=== PATIENT | male | born 1945 | race Caucasian/White ===

== ENCOUNTER 2024-05-17 10:41 | Outpatient (CLI) | payer MEDICARE, SELFPAY | END 2024-05-17 23:59 | disposition home or self-care (01) | LOC: RT 10:44 | PROVIDERS: PCP Family Medicine; Visit Provider Nurse Practitioner | DX: R42 Dizziness and giddiness (principal); R00.1 Bradycardia, unspecified; R06.09 Other forms of dyspnea | CPT/HCPCS: 93270 ==

== ENCOUNTER 2024-06-01 09:43 | Outpatient (CLI) | payer MEDICARE, SELFPAY ==
--- NOTE | 2024-06-01 | CA_ITS ---
APPROVED REPORT EXAM: Comprehensive 2D, Doppler, and color-flow Echocardiogram Knobber: Melani Franco RT(R) Ht: 5 ft 11 in Wt: 219lbs BSA: 2.19 BP: 150/70 mmHg Indications: dizziness, dyspnea, hyperlipidemia, ex smoker, COTO, hx COVID, bradycardia, acute facial weakness 2D Dimensions LVEF (Fuentes's) 59.20 % LV Volume 102.40 mL LA Volume 46.30 mL LA Volume Index 20.70 mL/m2 (M/F) 16-34 EF AP4 62.70 % EF AP2 52.5 % EF BP 59.2 % GL Strain -16.2 % M-Mode Dimensions RVDd 3.90 cm (0.9-2.6) LA Diam 5.09 cm (1.9-4.0) LVDd 4.50 cm (3.5-5.7) LVDs 3.34 cm (3.5-5.7) IVSd 0.92 cm (0.6-1.1) PWd 1.21 cm (0.6-1.1) EF (Teich) 50.90% FS 25.80% EDV (Teich) 92.40 mL ESV (Teich) 45.40 mL LV Diastology E Decel Time 217 (160-240 msec) E/A Ratio 1.32 Mitral Valve MV E Max Jareth. 99.0 (40-130 cm/s) MV A Velocity 75.0 (40-130 cm/s) E/A Ratio 1.32 MV PHT 63.0 ms Left Ventricle The left ventricle is normal size. The left ventricular systolic function is normal. The left ventricular ejection fraction is within the normal range. There is increased overall thickness. There is normal LV segmental wall motion. The left ventricular diastolic function is normal. LVEF is 55%. Right Ventricle The right ventricle is normal size. The right ventricular systolic function is normal. Atria Left atrium is mildly dilated. Right atrium is mildly dilated. There is no Doppler evidence of interatrial shunt. Aortic Valve The aortic valve is mildly thickened. Trace aortic regurgitation. There is no aortic valvular stenosis. Mitral Valve The mitral valve leaflets are mildly thickened. Mild mitral regurgitation. No evidence of mitral valve stenosis. Tricuspid Valve The tricuspid valve leaflets are thin and pliable. Trace tricuspid regurgitation. There is insufficient TR jet to estimate RVSP. Pulmonic Valve The pulmonary valve is normal in structure. Trace pulmonic regurgitation. Great Vessels The aortic root is normal in size. The ascending aorta is not well-visualized. IVC is normal in size and collapses >50% with inspiration. Pericardium There is no pericardial effusion. Other Information Study Quality: Fair Conclusion Normal biventricular systolic function. Mild biatrial dilation. Mild MR. Electronically signed by : Summer Potter MD 06/03/2024 13:13:15
--- OUTSIDE RECORDS SUMMARY | 2024-06-01 09:46 | XMS_ITS ---
Author Organization [facility] , [facility] Address [address] [place] [address] Phone Care Team Providers Care Field Service Technician Poultry Name Role Phone Lexa Garay MD [phone] Plan of Treatment No Plan of Treatment Recorded Assessments Includes: Assessments for all patient encounters No Assessments Recorded Medical Equipment - Implanted Devices Includes: Current and historical Devices No Medical Equipment Recorded Medications Administered Includes: Administered Medications in patient's chart No Administered Medications Recorded Results Includes: Results from 06/01/2023 through 06/01/2024 No Results Recorded For Specified Dates History of Present Illness History of Present Illness not supported for this document type No History of Present Illness Recorded Social History No Social History Recorded - Smoking Status Unknown Medical History Includes: Medical History in patient's chart No Medical History Recorded Family History Includes: Family History in patient's chart No Family History Recorded Review of Systems Review of Systems not supported for this document type No Review of Systems Recorded Mental Status No Mental Status Recorded Functional Status No Functional Status Recorded Physical Exam Physical Exam not supported for this document type No Physical Exam Recorded Insurance Includes: Active Insurance Policies Plan Name Member ID Group # Subscriber Relationship Effect nickie Dates 1 - Medicare Part B [facility] [id number] Ehsan De Dios 2 - [facility] [id number] Ehsan De Dios Clinical Notes Includes: Signed Clinical Notes starting from 07/25/2022 No Clinical Notes Recorded
--- OUTSIDE RECORDS SUMMARY | 2024-06-01 09:46 | XMS_ITS ---
Care Plan - [facility], [facility] Created on: June 01, 2024 Ehsan Erazo I : 1945 Sex: Male Author Organization [facility] Address [address] [place] [address] Phone Care Team Providers Care Drugless Doctor Name Role Phone Jarrod MUÑIZ, Lexa Hernandez Unavailable [phone]
== END 2024-06-01 23:59 | disposition home or self-care (01) ==
LOC: RT 09:44
PROVIDERS: PCP Family Medicine; Visit Provider Nurse Practitioner
DX: I51.7 Cardiomegaly (principal); I34.0 Nonrheumatic mitral (valve) insufficiency; R06.09 Other forms of dyspnea; R42 Dizziness and giddiness; R00.1 Bradycardia, unspecified; R29.810 Facial weakness; R41.89 Other symptoms and signs involving cognitive functions and awareness
CPT/HCPCS: 93306

== ENCOUNTER 2024-06-03 10:13 | Outpatient (CLI) | payer MEDICARE, SELFPAY ==
--- NOTE | 2024-06-03 10:21 | CT_ITS ---
PROCEDURE INFORMATION: Exam: CTA Neck With Contrast Exam date and time: 06/03/2024 10:36 AM Age: 78 years old Clinical indication: Dizziness and giddiness; Additional info: Dizziness, mouth droop TECHNIQUE: Imaging protocol: Computed tomographic angiography of the neck with contrast. Exam focused on the cervical segments of the vasculature. 3D rendering (Not supervised by radiologist): MIP and/or 3D reconstructed images were created by the technologist. Radiation optimization: All CT scans at this facility use at least one of these dose optimization techniques: automated exposure control; mA and/or kV adjustment per patient size (includes targeted exams where dose is matched to clinical indication); or iterative reconstruction. Contrast material: ISOVUE 370; Contrast volume: 100 ml; Contrast route: INTRAVENOUS (IV); COMPARISON: CT ANGIO HEAD 06/03/2024 10:36 AM FINDINGS: Right common carotid artery: No stenosis. No dissection or occlusion. Right internal carotid artery: No stenosis of the extracranial segment. No dissection or occlusion. Right external carotid artery: No occlusion or stenosis of the origin. Left common carotid artery: No stenosis. No dissection or occlusion. Left internal carotid artery: No stenosis of the extracranial segment. No dissection or occlusion. Left external carotid artery: No occlusion or stenosis of the origin. Right vertebral artery: No stenosis. No dissection or occlusion. Left vertebral artery: No stenosis. No dissection or occlusion. Soft tissues: Normal. No significant soft tissue swelling. Bones/joints: No acute fracture. IMPRESSION: No stenosis or occlusion. REFERENCES: NASCET CRITERIA. The degree of stenosis in the cervical segment of the internal carotid artery is based on NASCET criteria. Normal is no stenosis. Mild is less than 50% stenosis. Moderate is 50-69% stenosis. Severe is 70% to 99% stenosis. Total occlusion is no detectable patent lumen.
--- NOTE | 2024-06-03 10:21 | CT_ITS ---
PROCEDURE INFORMATION: Exam: CTA Head With Contrast, Arteriography Exam date and time: 06/03/2024 10:36 AM Age: 78 years old Clinical indication: Dizziness and giddiness; Additional info: Dizziness, mouth droop TECHNIQUE: Imaging protocol: Computed tomographic angiography of the head with contrast. Exam focused on the arteries. 3D rendering (Not supervised by radiologist): MIP and/or 3D reconstructed images were created by the technologist. Radiation optimization: All CT scans at this facility use at least one of these dose optimization techniques: automated exposure control; mA and/or kV adjustment per patient size (includes targeted exams where dose is matched to clinical indication); or iterative reconstruction. Contrast material: ISOVUE 370; Contrast volume: 100 ml; Contrast route: INTRAVENOUS (IV); COMPARISON: CT ANGIO HEAD 06/03/2024 10:36 AM FINDINGS: ANTERIOR CIRCULATION: Right internal carotid artery: Intracranial segment is patent with no significant stenosis. No aneurysm. Right middle cerebral artery: No occlusion or significant stenosis. No aneurysm. Right anterior cerebral artery: No occlusion or significant stenosis. No aneurysm. Left internal carotid artery: Intracranial segment is patent with no significant stenosis. No aneurysm. Left middle cerebral artery: No occlusion or significant stenosis. No aneurysm. Left anterior cerebral artery: No occlusion or significant stenosis. No aneurysm. POSTERIOR CIRCULATION: Right vertebral artery: No occlusion or significant stenosis. No aneurysm. Left vertebral artery: No occlusion or significant stenosis. No aneurysm. Basilar artery: No occlusion or significant stenosis. No aneurysm. Right posterior cerebral artery: No occlusion or significant stenosis. No aneurysm. Left posterior cerebral artery: No occlusion or significant stenosis. No aneurysm. Veins: Dural venous sinuses are patent Brain: There is no evidence of acute intracranial hemorrhage, extra-axial collection or locoregional mass effect. There are scattered hypodensities in the periventricular and subcortical white matter. The appearance is nonspecific, but most likely represents chronic small vessel disease in a person of this age Cerebral ventricles: The ventricles, sulci and cisterns are normal in size and configuration for patient's age. No hydrocephalus or midline structure shift Pituitary gland and sella: Sellar/parasellar structures, craniocervical junction and orbits are unremarkable Mastoid air cells: Visualized mastoid air cells are well aerated. Paranasal sinuses: Visualized sinuses are unremarkable. No fluid levels. Bones/joints: No calvarial fracture Soft tissues: Unremarkable. IMPRESSION: 1. No large vessel occlusion, aneurysm or other vascular lesions in the intracranial circulation. 2. No dural venous sinus thrombosis.
[2024-06-03] MEDS: 0.9 % SODIUM CHLORIDE 50 ML VIAL IV (11:14)
[2024-06-03] MEDS: SODIUM CHLORIDE 0.9% 10ML SYR (RAD ONLY) 10 ML IV (11:14)
[2024-06-03] MEDS: IOPAMIDOL-370 (76%);100ML BOTTLE 100 ML IV (11:14)
== END 2024-06-03 23:59 | disposition home or self-care (01) ==
LOC: RAD 10:14
PROVIDERS: PCP Family Medicine; Visit Provider Nurse Practitioner
DX: R41.89 Other symptoms and signs involving cognitive functions and awareness (principal); R29.810 Facial weakness; R42 Dizziness and giddiness; R06.09 Other forms of dyspnea; R00.1 Bradycardia, unspecified
CPT/HCPCS: 70496; 70498; Q9967

== ENCOUNTER → 2024-06-04 06:14 | Outpatient (CLI) | payer MEDICARE, SELFPAY | LOC: SL 06:15 | PROVIDERS: PCP Nurse Practitioner; Visit Provider Nurse Practitioner | DX: G47.33 Obstructive sleep apnea (adult) (pediatric) (principal); R41.89 Other symptoms and signs involving cognitive functions and awareness; R42 Dizziness and giddiness; R00.1 Bradycardia, unspecified; R06.09 Other forms of dyspnea; R29.810 Facial weakness | CPT/HCPCS: G0399 ==